=== PATIENT | female | born 1990 | race African-American/Black ===

== ENCOUNTER 2020-04-12 19:42 | Inpatient (IN) | payer MEDICAID ==
[~2020-04-12] VITALS: Ht 161.3 cm; Wt 139.3 kg
[~2020-04-12 19:42] MED LIST: ALDACTONE25 MG PO; CALAN SR120 MG PO; HUMALOG 30100 UNITS/ SC; HYDRALAZINE HCL10 MG PO; LANTUS INS100 UNITS/ SC; LASIX80 MG PO; LIPITOR40 MG PO; LISINOPRIL40 MG PO; TRESIBA FL100 UNIT/1 SC; VELTASSA8.4 GM PO; VISTARIL25 MG PO; ZYRTEC10 MG PO
[2020-04-12 21:22] LABS: BILIRUBIN NEGATIVE (NEGATIVE); KETONE NEGATIVE (NEGATIVE); NITRITE NEGATIVE (NEGATIVE); UROBILINOGEN NORMAL mg/dL (< 2)
[2020-04-12 21:43] LABS: BASOPHILS 0 % (0-2); EOSINOPHILS 2.9 % (0-7); HEMATOCRIT 34.3 % (36.0-48.0); HEMOGLOBIN 11.2 g/dL (12-16); IMMATURE GRANULOCYTES 0.2 % (0-5); LYMPHOCYTE ABS# 2.15 10x3/uL (1.18-3.74); LYMPHOCYTES 25.7 % (15-50); MCHC 32.7 g/dL (31.0-37.0); MCV 88.9 fL (80.0-100.0); MEAN PLATELET VOLUME 9.6 fL (7.4-10.4); MONOCYTES 6.7 % (2-11); NEUTROPHILS 64.5 % (40-80); RBC 3.86 10x6/uL (4.00-5.40); WBC 8.4 10x3/uL (4.8-10.8)
[2020-04-12 21:45] LABS: PLATELET COUNT 300 10x3/uL (130-400)
[2020-04-12 21:55] LABS: ANION GAP 13.8 mmol/L (8-16); CALCIUM 8.6 mg/dL (8.5-10.1); CARBON DIOXIDE 22.8 mmol/L (21.0-32.0); CREATININE - SERUM 3.4 mg/dL (0.6-1.3); POTASSIUM - SERUM 3.6 mmol/L (3.5-5.1)
[2020-04-12 22:05] LABS: ALBUMIN 2.4 g/dL (3.4-5.0); BILIRUBIN - TOTAL 0.13 mg/dL (0.2-1.3); MAGNESIUM - SERUM 1.8 mg/dL (1.8-2.4); PROTEIN - SERUM 6.5 g/dL (6.4-8.2)
[2020-04-13 00:34] LABS: APTT 29.3 SECONDS (22.8-39.4); CKMB 0.9 U/L (0.0-3.6); CREATINE KINASE 185 UL (21-215); INR 1.19 (0.85-1.17); TROPONIN-I < 0.017 ng/mL (0.000-0.060)
[2020-04-13 00:34] LABS: UDS - AMPHET NEGATIVE QUAL (NEGATIVE); UDS - BARB NEGATIVE QUAL (NEGATIVE); UDS - BENZO NEGATIVE QUAL (NEGATIVE); UDS - COCAINE NEGATIVE QUAL (NEGATIVE); UDS - OPIATE NEGATIVE QUAL (NEGATIVE); UDS - PCP NEGATIVE QUAL (NEGATIVE); UDS - THC POSITIVE QUAL (NEGATIVE)
[2020-04-13 08:20] VITALS: BP 166/87
[2020-04-13 08:30] LABS: BASOPHILS 0.1 % (0-2); EOSINOPHILS 3.5 % (0-7); HEMATOCRIT 31.7 % (36.0-48.0); IMMATURE GRANULOCYTES 0.3 % (0-5); LYMPHOCYTE ABS# 2.17 10x3/uL (1.18-3.74); MCH 28.3 pg (26.0-34.0); MCHC 31.5 g/dL (31.0-37.0); MCV 89.8 fL (80.0-100.0); MEAN PLATELET VOLUME 9.4 fL (7.4-10.4); MONOCYTES 5.4 % (2-11); NEUTROPHIL ABS# 4.85 10x3/uL (1.56-6.13); NEUTROPHILS 62.7 % (40-80); PLATELET COUNT 265 10x3/uL (130-400); RBC 3.53 10x6/uL (4.00-5.40); RDW 14.1 % (11.5-14.5); WBC 7.7 10x3/uL (4.8-10.8)
[2020-04-13 08:52] LABS: ALBUMIN 2.1 g/dL (3.4-5.0); ANION GAP 12.6 mmol/L (8-16); BILIRUBIN - TOTAL 0.12 mg/dL (0.2-1.3); CALCIUM 8.5 mg/dL (8.5-10.1); CARBON DIOXIDE 22.2 mmol/L (21.0-32.0); CREATININE - SERUM 3.1 mg/dL (0.6-1.3); MAGNESIUM - SERUM 1.9 mg/dL (1.8-2.4); POTASSIUM - SERUM 4.8 mmol/L (3.5-5.1); PROTEIN - SERUM 5.9 g/dL (6.4-8.2)
[2020-04-13] MEDS ORDERED: COZAAR50 MG (12:14)
[2020-04-13 12:26] VITALS: BMI 53.5
[2020-04-13 12:39] VITALS: Ht 161.3 cm; Wt 139.3 kg
--- NOTE | 2020-04-13 13:50 | NUR ---
DR. LANDEROS CALLS FOR REPORT ON PRESENTING PROBLEM AND NEPHROLOGY CONSULT.
--- NOTE | 2020-04-13 13:50 | NUR ---
LINENS CHANGED PER PATIENT. BATHING SUPPLIES PROVIDED.
--- NOTE | 2020-04-13 18:46 | NUR ---
ELÍAS GLOVER APRN, NOTIFIED OF FSBS OF 423 AND TREATMENT WITH 12UNITS INSULIN. ALSO INFORMED OF PATIENT ASKING TO BE DISCHARGED. INSTRUCTIONS FOR NEED TO CONTINUE OBSERVATION OF ANTIBIOTICS AND BP MEDICATION.
[2020-04-13 21:09] VITALS: BP 189/89
--- NOTE | 2020-04-13 23:06 | NUR ---
20G IV ESTABLISHED IN LAC. IV PATENT AND SALINE LOCKED.
[2020-04-13 23:34] VITALS: BP 152/73
[2020-04-14 05:29] VITALS: BP 130/83
[2020-04-14 07:55] LABS: HEMATOCRIT 29.8 % (36.0-48.0); HEMOGLOBIN 9.7 g/dL (12-16); LYMPHOCYTES 40.3 % (15-50); MCHC 32.6 g/dL (31.0-37.0); MCV 89.2 fL (80.0-100.0); MEAN PLATELET VOLUME 9.5 fL (7.4-10.4); NEUTROPHILS 53.3 % (40-80); PLATELET COUNT 227 10x3/uL (130-400); RBC 3.34 10x6/uL (4.00-5.40); RDW 13.6 % (11.5-14.5)
[2020-04-14 07:57] LABS: ANION GAP 14.5 mmol/L (8-16); BILIRUBIN - TOTAL 0.13 mg/dL (0.2-1.3); CALCIUM 8.1 mg/dL (8.5-10.1); CARBON DIOXIDE 19.8 mmol/L (21.0-32.0); CREATININE - SERUM 3.2 mg/dL (0.6-1.3); MAGNESIUM - SERUM 1.7 mg/dL (1.8-2.4); POTASSIUM - SERUM 4.3 mmol/L (3.5-5.1); PROTEIN - SERUM 4.9 g/dL (6.4-8.2)
[2020-04-14 08:04] LABS: WBC 4.5 10x3/uL (4.8-10.8)
[2020-04-14 10:42] VITALS: BP 130/83
--- NOTE | 2020-04-14 10:42 | NUR ---
PATIENT AWAKE AND ALERT, ORIENTED X 4, NO DISTRESS NOTED. RESPIRATIONS EVEN ADN UNLABORED. PATIETN UP AND AMBULATING AROUND ROOM AND TO THE RESTROOM WITHOUT DIFFICULTY. IV SITE DRY AND INTACT. CALL AVENDAÑO IN REACH, SIDE RAILS UP X 2, BED IN LOW POSITION. PATIENT DENIES ANY NEEDS AT THIS TIME.
--- NOTE | 2020-04-14 11:10 | NUR ---
PATIENT NOTIFIED NURSE THAT SHE WANTS TO BE DISCHARGED. PATIENT INSTRUCTED THAT THEIR ARE NO DISCHARGE ORDERS IN AND THAT NURSE CAN TALK WITH DR. GUERIN TO SEE IF HE WOULD LIKE TO WRITE DISCHARGE ORDERS. PEDRON STATES SHE DOES NOT WANT TO WAIT TO NOTIFY PHYSICIAN SHE IS READY TO LEAVE AND WANTS TO SIGN AN AMA FORM. PATIENT IS AWAKE ADN ALERT, ORIENTED X 4 ADN UNDERSTANDS THE RISKS OR GOING HOME WITHOUT PHYSICIANS ORDERS. AMA FORM SIGNED AND ALIA DISCONTINUED IV HERSELF, NO BLEEDING NOTED. NO DISTRESS NOTED. PATIENT AMBULATED OUT TO WAITING AREA.
== END 2020-04-14 14:49 | disposition left against medical advice (07) | DRG 682 ==
LOC: D.ER 19:42 → D.EDHOLD 22:28
PROVIDERS: Family Medicine; ADMIT Family Medicine; ATTEND Family Medicine
DX: N17.9 Acute kidney failure, unspecified (principal); J18.9 Pneumonia, unspecified organism; F17.203 Nicotine dependence unspecified, with withdrawal; Z68.43 Body mass index [BMI] 50.0-59.9, adult; I12.9 Hypertensive chronic kidney disease with stage 1 through stage 4 chronic kidney disease, or unspecified chronic kidney disease; N18.30 Chronic kidney disease, stage 3 unspecified; D63.1 Anemia in chronic kidney disease; E11.22 Type 2 diabetes mellitus with diabetic chronic kidney disease; E86.9 Volume depletion, unspecified; E78.5 Hyperlipidemia, unspecified; E66.01 Morbid (severe) obesity due to excess calories; E86.0 Dehydration